=== PATIENT | male | born 1940 | race Caucasian/White ===

== ENCOUNTER 2017-06-10 05:51 | Outpatient (CLI) | payer MEDICARE ==
[~2017-06-10] VITALS: Ht 174 cm; Wt 83.9 kg
[2017-06-10] MEDS ORDERED: LACT1CAP62 PO ×2 (09:13)
[2017-06-10] MEDS ORDERED: LOPE-145 PO ×2 (09:13)
[2017-06-10] MEDS ORDERED: LEVO150T6 PO ×2 (09:13)
[2017-06-10] MEDS ORDERED: ROSU20TA PO ×2 (09:13)
[2017-06-11] MEDS ORDERED: HYDR-3874 PO ×2 (11:32)
[2017-06-11] MEDS ORDERED: CEPH-507 PO ×2 (11:32)
== END 2017-06-10 09:22 ==
LOC: PREOP 05:51
PROVIDERS: ATTEND Urology
DX: Z01.818 Encounter for other preprocedural examination (principal); N43.3 Hydrocele, unspecified

== ENCOUNTER → 2017-06-10 | Outpatient (CLI) | payer MEDICARE ==
[~2017-06-10] MED LIST: CEPH-507 PO; HYDR-3874 PO; LACT1CAP62 PO; LEVO150T6 PO; LOPE-145 PO; ROSU20TA PO
[2017-06-10 10:34] LABS: BUN/CREATININE RATIO 19; CALCIUM 9.4 MG/DL (8.5-10.1); CARBON DIOXIDE 27 MMOL/L (21-32); CHLORIDE 104 MMOL/L (98-107); CREATININE SERUM 0.86 MG/DL (0.60-1.30); GFR ESTIMATED > 60; GLUCOSE 93 MG/DL (70-105); POTASSIUM 4.6 MMOL/L (3.6-5.0); SODIUM 139 MMOL/L (135-145)
== END ==
LOC: LAB 10:00
PROVIDERS: ATTEND Urology
DX: N40.0 Benign prostatic hyperplasia without lower urinary tract symptoms (principal); E29.1 Testicular hypofunction
CPT/HCPCS: 36415; 80048; 84153; 84403

== ENCOUNTER 2017-06-11 06:41 | Day surgery (SDC) | payer MEDICARE ==
[~2017-06-11] VITALS: Ht 174 cm; Wt 83.9 kg
[~2017-06-11 06:41] MED LIST changes: -CEPH-507 PO; -HYDR-3874 PO
--- OUTSIDE RECORDS SUMMARY | 2017-06-11 06:44 | XMS REPORT ---
Author Author LIZZETH GOMEZ Organization [facility] Address [address] [place] [address] Care Team Providers Care House Player Name Role Phone LIZZETH GOMEZ Unavailable PROBLEMS Type Condition ICD9-CM Code [id number] Code Onset Dates Condition Status SNOMED Code Problem History of colorectal cancer Z85.038 Active 798613862 Problem Hyperlipidemia, unspecified hyperlipidemia type E78.5 Active 02092172 Problem Hx of hypotestosteronemia Z86.39 Active 190454425 Problem Hypothyroidism, unspecified type E03.9 Active 91582926 Problem History of duodenal ulcer Z87.19 Active 202354427 ALLERGIES Substance Reaction Event Type Date Status Morphine Sulfate hallucinations Drug Allergy Mar, Active SOCIAL HISTORY No smoking Hx information available PLAN OF CARE Activity Details Follow Up 1 Year Reason:hyperlipid VITAL SIGNS Weight 191.8 lbs 2016-04-17 Temperature 98.4 degrees Fahrenheit 2016-04-17 Heart Rate 68 bpm 2016-04-17 Respiratory Rate 20 2016-04-17 Blood pressure systolic 122 mmHg 2016-04-17 Blood pressure diastolic 74 mmHg 2016-04-17 MEDICATIONS Medication Instructions Dosage Frequency Start Date End Date Duration Status Levothyroxine Sodium 150 MCG Orally Once a day 1 tablet 24h Active Crestor 20 mg Orally Once every other day 1 tablet Active RESULTS No Results PROCEDURES Procedure Date Ordered Related Diagnosis Body Site PCV 13 Apr 17, 2016 FLUZONE HIGH DOSE 65 AND UP 2015Apr 17, 2016 IMMUNIZATION ADMIN, EACH ADD (please include units) Apr 17, 2016 SINGLE IMMUNIZATION ADMIN Apr 17, 2016 Office Visit, Est Pt., Level 3 Apr 17, 2016 [facility] VISIT ESTABLISHED PATIENT Apr 17, 2016 IMMUNIZATIONS Vaccine Route Administration Date Status FLUZONE HIGH DOSE 65 AND UP 2015 IM Intramuscular Apr 17, 2016 Administered PCV 13 IM Intramuscular Apr 17, 2016 Administered
--- OUTSIDE RECORDS SUMMARY | 2017-06-11 06:45 | XMS REPORT ---
Author Author LIZZETH GOMEZ [facility] Address [address] [place] [address] Care Team Providers Care Boat Loader Name Role Phone LIZZETH GOMEZ Unavailable PROBLEMS Type Condition ICD9-CM Code KCA20-AJ Code Onset Dates Condition Status SNOMED Code Problem Hyperlipidemia, unspecified hyperlipidemia type E78.5 Active 63056368 Problem Hypothyroidism, unspecified type E03.9 Active 84123128 Problem Hx of hypotestosteronemia Z86.39 Active 823303060 Assessment Hyperthyroidism E05.90 16 Dec, 2016 Active 72928120 Problem History of colon cancer Z85.038 Active 525812251 Problem History of duodenal ulcer Z87.19 Active 633999669 ALLERGIES Unknown Allergies SOCIAL HISTORY No smoking Hx information available PLAN OF CARE VITAL SIGNS MEDICATIONS Medication Instructions Dosage Frequency Start Date End Date Duration Status Levothyroxine Sodium 150 MCG Orally Once a day 1 tablet 24h 90 days Active RESULTS No Results PROCEDURES No Known procedures IMMUNIZATIONS No Known Immunizations
--- OUTSIDE RECORDS SUMMARY | 2017-06-11 06:45 | XMS REPORT ---
Author Author LIZZETH GOMEZ [facility] Address [address] [place] [address] Care Team Providers Care Pre Coder Name Role Phone LIZZETH GOMEZ Unavailable PROBLEMS Type Condition ICD9-CM Code RTK43-FT Code Onset Dates Condition Status SNOMED Code Problem History of colorectal cancer Z85.038 Active 282660111 Problem Hyperlipidemia, unspecified hyperlipidemia type E78.5 Active 13611281 Problem Hx of hypotestosteronemia Z86.39 Active 292888121 Problem Hypothyroidism, unspecified type E03.9 Active 02181806 Problem History of duodenal ulcer Z87.19 Active 458826833 ALLERGIES Unknown Allergies SOCIAL HISTORY No smoking Hx information available PLAN OF CARE VITAL SIGNS MEDICATIONS Unknown Medications RESULTS Name Result Date Reference Range TSH 2016-04-06 TSH 1.780 0.450-4.500 CBC 2016-04-06 WBC 4.9 3.4-10.8 RBC 4.79 4.14-5.80 Hemoglobin 14.8 12.6-17.7 Hematocrit 42.8 37.5-51.0 MCV 89 79-97 MCH 30.9 26.6-33.0 MCHC 34.6 31.5-35.7 RDW 13.1 12.3-15.4 Platelets 218 150-379 Neutrophils 53 Lymphs 33 Monocytes 9 Eos 4 Basos 1 Neutrophils (Absolute) 2.6 1.4-7.0 Lymphs (Absolute) 1.6 0.7-3.1 Monocytes(Absolute) 0.4 0.1-0.9 Eos (Absolute) 0.2 0.0-0.4 Baso (Absolute) 0.0 0.0-0.2 Immature Granulocytes 0 Immature Grans (Abs) 0.0 0.0-0.1 LIPID PANEL 2016-04-06 Cholesterol, Total 183 100-199 Triglycerides 134 0-149 HDL Cholesterol 67 >39 VLDL Cholesterol Peter 27 5-40 LDL Cholesterol Calc 89 0-99 Comment: CMP 2016-04-06 Glucose, Serum 92 65-99 BUN 14 8-27 Creatinine, Serum 0.84 0.76-1.27 eGFR If NonAfricn Am 87 >59 eGFR If Africn Am 100 >59 BUN/Creatinine Ratio 17 10-22 Sodium, Serum 142 134-144 Potassium, Serum 4.8 3.5-5.2 Chloride, Serum 101 96-106 Carbon Dioxide, Total 27 18-29 Calcium, Serum 9.0 8.6-10.2 Protein, Total, Serum 6.6 6.0-8.5 Albumin, Serum 3.8 3.5-4.8 Globulin, Total 2.8 1.5-4.5 A/G Ratio 1.4 1.1-2.5 Bilirubin, Total 0.7 0.0-1.2 Alkaline Phosphatase, S 88 39-117 AST (SGOT) 27 0-40 ALT (SGPT) 40 0-44 PROCEDURES Procedure Date Ordered Related Diagnosis Body Site [facility] Apr 06, 2016 VENIPUNCT, ROUTINE* Apr 06, 2016 IMMUNIZATIONS No Known Immunizations
--- OUTSIDE RECORDS SUMMARY | 2017-06-11 06:45 | XMS REPORT ---
Author Author LIZZETH GOMEZ Organization [employer] Address Unknown Phone Unavailable Care Team Providers Care Atlassian Administrator Name Role Phone LIZZETH GOMEZ CP Unavailable Allergies No Known Allergies Problems Problem Type Condition Code Onset Dates Condition Status Problem Hyperlipidemia, unspecified hyperlipidemia type E78.5 Active Assessment Nausea and vomiting in adult R11.2 Active Problem Hyperthyroidism E05.90 Active Medications Medication Code System Code Instructions Start Date End Date Status Dosage Zofran [facility] [address]-74 8 MG Orally every 8 hours, PRN November 18, 2015 1 tablet Levothyroxine Sodium [facility] [address]-05 150 MCG Orally Once a day 1 tablet Crestor [facility] [address]-60 20 mg Orally Once every other day 1 tablet Results No Known Results Summary Purpose [employer] Submission
--- OUTSIDE RECORDS SUMMARY | 2017-06-11 06:45 | XMS REPORT ---
Author Author LIZZETH GOMEZ [facility] Address [address] [place] [address] Care Team Providers Care Deicer Inspector Electric Name Role Phone LIZZETH GOMEZ Unavailable PROBLEMS Type Condition ICD9-CM Code LLY29-YD Code Onset Dates Condition Status SNOMED Code Problem History of colorectal cancer Z85.038 Active 442388417 Problem Hyperlipidemia, unspecified hyperlipidemia type E78.5 Active 79950933 Problem Hx of hypotestosteronemia Z86.39 Active 953608437 Problem Hypothyroidism, unspecified type E03.9 Active 09214781 Problem History of duodenal ulcer Z87.19 Active 101514655 ALLERGIES Unknown Allergies SOCIAL HISTORY No smoking Hx information available PLAN OF CARE VITAL SIGNS MEDICATIONS Medication Instructions Dosage Frequency Start Date End Date Duration Status Levothyroxine Sodium 150 MCG Orally Once a day 1 tablet 24h Active RESULTS No Results PROCEDURES No Known procedures IMMUNIZATIONS No Known Immunizations
--- OUTSIDE RECORDS SUMMARY | 2017-06-11 06:45 | XMS REPORT ---
Author Author LIZZETH GOMEZ [facility] Address [address] [place] [address] Care Team Providers Care Business Operations Consultant Name Role Phone LIZZETH GOMEZ Unavailable PROBLEMS Type Condition ICD9-CM Code JEZ46-LE Code Onset Dates Condition Status SNOMED Code Problem History of colorectal cancer Z85.038 Active 249107441 Problem Hyperlipidemia, unspecified hyperlipidemia type E78.5 Active 65765713 Problem Hx of hypotestosteronemia Z86.39 Active 425782206 Problem Hypothyroidism, unspecified type E03.9 Active 36515143 Problem History of duodenal ulcer Z87.19 Active 064447005 ALLERGIES Unknown Allergies SOCIAL HISTORY No smoking Hx information available PLAN OF CARE VITAL SIGNS MEDICATIONS Medication Instructions Dosage Frequency Start Date End Date Duration Status Levothyroxine Sodium 150 MCG Orally Once a day 1 tablet 24h 90 days Active Crestor 20 mg Orally Once every other day 1 tablet 90 Active RESULTS No Results PROCEDURES No Known procedures IMMUNIZATIONS No Known Immunizations
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
[2017-06-11] MEDS ORDERED: CATHETER FLUSH 10 ML SYR IV PRN (07:00)
[2017-06-11] MEDS ORDERED: ceFAZolin 1 GM/NS 50 ML IVPB IV ONE ×2 (07:00)
[2017-06-11] MEDS ORDERED: ceFAZolin INJECTION 1,000 MG in NS (IVPB) 50 ML IV ONE (07:00)
--- NOTE | 2017-06-11 07:16 | Progress Note-Pre Operative ---
Pre-Operative Progress Note H&P Reviewed The H&P was reviewed, patient examined and no changes noted. Date Seen by Provider: Jun 11, 2017 Time Seen by Provider: 07:16 Date H&P Reviewed: Jun 11, 2017 Time H&P Reviewed: 07:16 Pre-Operative Diagnosis: LT HYDROCELE GAVIOTA BURCH MD Jun 11, 2017 7:16 am
--- NOTE | 2017-06-11 07:17 | Progress Note-Post Operative ---
Post-Operative Progess Note Surgeon (s)/Travel Occupational Therapist (s) Surgeon GAVIOTA BURCH MD Travel Occupational Therapist: N/A Pre-Operative Diagnosis LT HYDROCELE Post-Operative Diagnosis SAME Procedure & Operative Findings Date of Procedure 06/11/17 Procedure Performed/Findings LT HYDROCELECTOMY Anesthesia Type GENERAL Estimated Blood Loss Estimated blood loss (mL): NEGLIGIBLE Specimens/Packing Specimens Removed N/A Packin/" NINO DRAIN GAVIOTA BURCH MD Jun 11, 2017 7:17 am
--- NOTE | 2017-06-11 07:20 | Discharge Inst-Urology ---
Discharge Inst-Urology Discharge Medications New, Converted, or Re-newed RX: RX on Chart Patient Instructions/Follow Up Plan Please make appointment to been seen in office in 2 weeks. Rest till then Tomorrow, come to office at 9am to DC drain, may shower after that, no bath Keep bowels soft and moving Ice to scrotum in RR and at home for 6 hrs and then PRN If questions or concerns contact your physician Or seek help at emergency department. GAVIOTA BURCH MD Jun 11, 2017 7:20 am
[2017-06-11] MEDS ORDERED: fentaNYL INJECTION 100 MCG/2 ML AMP ONE (07:29)
[2017-06-11] MEDS: LACTATED RINGERS 1,000 ML IV PRN ×2 (07:38→09:26)
[2017-06-11 07:40] VITALS: BP 147/94
[2017-06-11] MEDS ORDERED: ONDANSETRON 4 MG/2 ML (SDV) Z0FRAN ONE (09:11)
[2017-06-11] MEDS ORDERED: DEXAMETHASONE 10 MG/ML (DECADRON) 1 ML VIAL ONE (09:11)
[2017-06-11] MEDS ORDERED: proPOfol 200 MG/20 ML (DIPRIVAN) VIAL IV ONE (09:11)
[2017-06-11] MEDS ORDERED: SEVOFLURANE (ULTANE) 15 ML INHAL SOLN ONE (09:11)
[2017-06-11] MEDS ORDERED: LIDOCAINE PF 2% 5 ML (XYLOCAINE) VIAL ONE (09:12)
[2017-06-11] MEDS: fentaNYL INJECTION 100 MCG/2 ML AMP IVP PRN ×2 (09:40→09:46)
[2017-06-11 10:15] VITALS: BP 151/78
[2017-06-11 10:45] VITALS: BP 141/80
[2017-06-11 11:15] VITALS: BP 140/73
[2017-06-11] MEDS ORDERED: CEPH-507 PO ×2 (11:32)
[2017-06-11] MEDS ORDERED: HYDR-3874 PO ×2 (11:32)
[2017-06-11 11:46] VITALS: BP 140/73
--- NOTE | 2017-06-11 13:21 | OPERATIVE REPORT ---
DATE OF SERVICE: 06/11/2017 PREOPERATIVE DIAGNOSIS: Left moderate hydrocele, symptomatic. POSTOPERATIVE DIAGNOSIS: Left moderate hydrocele, symptomatic. OPERATION PERFORMED: Left hydrocelectomy. SURGEON: Gaurav Burch M.D. ANESTHESIA: General. COMPLICATIONS: None. PROCEDURE: Under satisfactory general anesthesia, the patient in supine position, abdomen, genitalia and thigh were prepped and draped in the usual sterile fashion. An incision was made in the median raphe of the scrotum, carried through the left scrotal compartment. Bleeders were cauterized as the dissection was proceeding. The moderate amount of hydrocele of clear fluid was suctioned. The appendix epididymis and appendix testicle were cauterized and excised. There was really no big hydrocele sac to excise, so I went ahead and everted the hydrocele sac behind the spermatic cord to prevent recurrence using several interrupted 3-0 chromic catgut. Hemostasis was complete. Testicle was replaced in the scrotum, which was drained with quarter of an inch Herrick drain, brought through a separate stab wound to the bottom of the scrotum and secured in position with a 3-0 chromic catgut suture. Closure was performed in two layers, the dartos with running 3-0 chromic catgut, and the skin with interrupted 4-0 Vicryl. Telfa dressing, fluff, and scrotal support were applied. Estimated blood loss was negligible. Needle, sponge and instrument counts were correct x2. The patient tolerated the procedure and anesthesia well and was sent to recovery room in stable condition. Instructions were given to the and preoperatively to the patient himself. Job ID: [id number] DocumentID: [id number] Dictated Date: 06/11/2017 09:20:53 Project Director Date: 06/11/2017 13:20:59 Dictated By: GAURAV BURCH MD
== END 2017-06-11 11:45 | disposition home or self-care (01) ==
LOC: SDC 06:41
PROVIDERS: ATTEND Urology
DX: N43.3 Hydrocele, unspecified (principal); E78.5 Hyperlipidemia, unspecified; E03.9 Hypothyroidism, unspecified; Z87.891 Personal history of nicotine dependence; Z85.038 Personal history of other malignant neoplasm of large intestine; Z79.899 Other long term (current) drug therapy
CPT/HCPCS: 87081